=== PATIENT | male | born 1980 | race Caucasian/White ===

== ENCOUNTER 2017-08-05 12:24 | Emergency (ER) | payer OTHER ==
[~2017-08-05] VITALS: Ht 177.8 cm; Wt 94.4 kg
[2017-08-05] MEDS ORDERED: KEFLEX500 MG PO (15:06)
[2017-08-05] MEDS ORDERED: BACTRIM,SEPT1 TABLET PO (15:06)
[2017-08-05] MEDS ORDERED: PERCOCET 5/31 TABLET PO (15:06)
[2017-08-05 15:22] VITALS: BP 141/88
== END 2017-08-05 15:25 | disposition home or self-care (01) ==
LOC: EME 12:24
PROC: 0H9DXZZ Drainage of Right Lower Arm Skin, External Approach (ICD-10-PCS; principal; 2017-08-05)
DX: L02.413 Cutaneous abscess of right upper limb (principal); F17.200 Nicotine dependence, unspecified, uncomplicated
CPT/HCPCS: 73090; 99281; 99284

== ENCOUNTER 2017-08-15 11:51 | Emergency (ER) | payer OTHER ==
[~2017-08-15] VITALS: Ht 177.8 cm; Wt 92.4 kg
[~2017-08-15 11:51] MED LIST: BACTRIM,SEPT1 TABLET PO; KEFLEX500 MG PO; PERCOCET 5/31 TABLET PO
[2017-08-15] MEDS ORDERED: KEFLEX500 MG PO (12:48)
[2017-08-15] MEDS ORDERED: BACTRIM,SEPT1 TABLET PO (12:48)
[2017-08-15 13:01] VITALS: BP 135/91
== END 2017-08-15 13:02 | disposition home or self-care (01) ==
LOC: EME 11:51
DX: L02.511 Cutaneous abscess of right hand (principal); L02.414 Cutaneous abscess of left upper limb; F17.200 Nicotine dependence, unspecified, uncomplicated; F14.10 Cocaine abuse, uncomplicated
CPT/HCPCS: 99281; 99283